=== PATIENT | male | born 1980 | race Caucasian/White ===

== ENCOUNTER 2017-04-12 20:22 | Emergency (ER) | payer SELFPAY ==
[2017-04-12] MEDS ORDERED: Ondansetron 4 MG/2 ML SDV IVPUSH ONE (21:45)
[2017-04-12] MEDS ORDERED: Ketorolac 30 MG/ML SDV IVPUSH ONE (21:45)
[2017-04-12] MEDS ORDERED: Sodium Chloride 0.9% 1,000 ML IV ONE (21:45)
--- NOTE | 2017-04-12 21:51 | EDM.PDOC ---
<Ld Sosa E - Last Filed: 04/12/17 21:46> ED HPI GENERAL MEDICAL PROBLEM - General Chief Complaint: Abdominal Pain Stated Complaint: SICK/SORE THROAT/NAUSEA/VOMITING Time Seen by Provider: 04/12/17 21:46 Source of Information: Reports: Patient History Limitations: Reports: No Limitations - History of Present Illness INITIAL COMMENTS - FREE TEXT/NARRATIVE: HISTORY AND PHYSICAL: History of present illness: Patient is a 36-year-old male who presents to the emergency room today with complaints of nausea, vomiting, diarrhea and generalized low abdominal pain. The symptoms started last night. He states his abdominal pain is due to the retching he has been having while vomiting. He is nontender with palpation to all 4 quadrants. States "soon as it drinks something it comes right back up", reports that he is hungry but is unable to keep anything down. States approximately one week ago he had "sinus symptoms" with a sore throat, nasal congestion and a hoarse voice. As not used any [id number] products for this. Denies any recent travel outside the [place]. Denies any new foods or fast/greasy foods that would have accepted his stomach. Has not been around anyone who has been recently sick either. Had his gallbladder removed approximately 1 month ago, has had no complications since that time. Has not received the 2017- 18 influenza vaccine. Review of systems: As per history of present illness and below otherwise all systems reviewed and negative. Past medical history: As per history of present illness and as reviewed below otherwise noncontributory. Surgical history: As per history of present illness and as reviewed below otherwise noncontributory. Social history: No reported history of drug or alcohol abuse. Family history: As per history of present illness and as reviewed below otherwise noncontributory. Physical exam: Gen.: Well-developed and well-nourished 36-year-old male. Appears in no acute distress and nontoxic appearing. Alert and oriented. HEENT: Atraumatic, normocephalic, pupils reactive, negative for conjunctival pallor or scleral icterus, mucous membranes moist, throat clear, neck supple, nontender, trachea midline. TMs clear bilaterally. Hoarse voice noted, uvula is midline. No soft tissue swelling noted to the posterior oropharynx. Lungs: Clear to auscultation, breath sounds equal bilaterally, chest nontender. Heart: S1S2, regular rate and rhythm Abdomen: Soft, nondistended, nontender. No rebound tenderness. Negative for masses or hepatosplenomegaly. Negative for costovertebral tenderness. Pelvis: Stable nontender. Genitourinary: Deferred. Rectal: Deferred. Extremities: Atraumatic, moves all extremities per self, full range of motion, and negative for cords or calf pain. Neurovascular unremarkable. Neuro: Awake, alert, oriented. Cranial nerves II through XII unremarkable. Cerebellum unremarkable. Motor and sensory unremarkable throughout. Exam nonfocal. Diagnostics: CBC, CMP, amylase, lipase Therapeutics: IV fluid, Zofran, Toradol Impression: Viral gastroenteritis Plan: 1. Please take the prescriptions as prescribed. 2. Advance her diet as tolerated. Encourage oral fluids to prevent dehydration. 3. Follow-up with your primary caregiver in the next 1-2 days. Return to the ED as needed and as discussed. Definitive disposition and diagnosis as appropriate pending reevaluation and review of above. Duration: Day(s): Location: Reports: Generalized abdomen Pain Score (Numeric/FACES): 7 low back Pain Score (Numeric/FACES): 5 - Related Data Allergies Allergy/AdvReac Type Severity Reaction Status Date / Time No Known Allergies Allergy Verified 04/12/17 20:45 Home Meds: Home Meds . [No Known Home Meds] 04/12/17 [History] Past Medical History - Past Health History Medical/Surgical History: Denies Medical/Surgical History - Past Surgical History GI Surgical History: Reports: Cholecystectomy Social & Family History - Family History Family Medical History: Noncontributory - Tobacco Use Smoking Status *Q: Current Every Day Smoker Years of Tobacco use: 10 Packs/Tins Daily: 1 - Recreational Drug Use Recreational Drug Use: No ED ROS GENERAL - Review of Systems Review Of Systems: ROS reveals no pertinent complaints other than HPI. ED EXAM, GI/ABD - Physical Exam Exam: See Below (See dictation) Course - Vital Signs Last Recorded V/S: Last Vital Signs Temp 36.2 C 04/12/17 20:46 Pulse 82 04/12/17 20:46 Resp 18 04/12/17 20:46 BP 127/71 04/12/17 20:46 Pulse Ox 96 04/12/17 20:46 - Orders/Labs/Meds Orders: Active Orders 24 hr Category Date Time Status Dicyclomine [Bentyl] Med 04/12/17 23:36 Once 20 mg PO ONETIME ONE Labs: Laboratory Tests 04/12/17 04/12/17 Range/Units 22:22 22:22 WBC 8.04 (4.0-11.0) K/uL RBC 4.77 (4.50-5.90) M/uL Hgb 15.9 (13.0-17.0) g/dL Hct 45.1 (38.0-50.0) % MCV 94.5 (80.0-98.0) fL MCH 33.3 H (27.0-32.0) pg MCHC 35.3 (31.0-37.0) g/dL RDW Std Deviation 48.2 (28.0-62.0) fl RDW Coeff of Rody 14 (11.0-15.0) % Plt Count 234 (150-400) K/uL MPV 9.80 (7.40-12.00) fL Neut % (Auto) 76.0 (48.0-80.0) % Lymph % (Auto) 12.2 L (16.0-40.0) % [place] % (Auto) 11.3 (0.0-15.0) % Eos % (Auto) 0.4 (0.0-7.0) % Baso % (Auto) 0.1 (0.0-1.5) % Neut # (Auto) 6.1 H (1.4-5.7) K/uL Lymph # (Auto) 1.0 (0.6-2.4) K/uL [place] # (Auto) 0.9 H (0.0-0.8) K/uL Eos # (Auto) 0.0 (0.0-0.7) K/uL Baso # (Auto) 0.0 (0.0-0.1) K/uL Nucleated RBC % 0.0 /100WBC Nucleated RBCs # 0 K/uL Sodium 137 (136-146) mmol/L Potassium 3.6 (3.5-5.1) mmol/L Chloride 105 (98-110) mmol/L Carbon Dioxide 22 (21-31) mmol/L BUN 19 (6.0-23.0) mg/dL Creatinine 1.1 (0.6-1.5) mg/dL Est Cr Clr Drug Dosing 109.89 mL/min Estimated GFR (MDRD) > 60.0 ml/min Glucose 96 (60-110) mg/dL Calcium 9.1 (8.8-10.8) mg/dL Total Bilirubin 0.6 (0.1-1.5) mg/dL AST 32 (5-40) IU/L ALT 62 H (8-54) IU/L Alkaline Phosphatase 226 H (40-150) Total Protein 7.3 (6.0-8.0) g/dL Albumin 4.1 (3.5-5.0) g/dL Globulin 3.2 (2.0-3.5) g/dL Albumin/Globulin Ratio 1.28 Amylase 55 (10-90) U/L Lipase 15 (7-80) U/L Meds: Medications Discontinued Medications Generic Name Dose Route Start Last Admin Trade Name Freq PRN Reason Stop Dose Admin Sodium Chloride 1,000 mls @ 999 mls/hr 04/12/17 21:45 04/12/17 22:32 Normal Saline IV 04/12/17 22:45 999 mls/hr STAT ONE Administration Ketorolac Tromethamine 30 mg 04/12/17 21:45 04/12/17 22:33 Toradol IVPUSH 04/12/17 21:46 30 mg ONETIME ONE Administration Ondansetron HCl 4 mg 04/12/17 21:45 04/12/17 22:33 Zofran IVPUSH 04/12/17 21:46 4 mg ONETIME ONE Administration Departure - Departure Disposition: Home, Self-Care 01 Clinical Impression: Gastroenteritis - Discharge Information Instructions: Viral Gastroenteritis, Adult, [id number] Referrals: PCP,None [Primary Care Provider] - Forms: ED Department Discharge Additional Instructions: My general discharge The following information is given to patients seen in the emergency department who are being discharged to home. This information is to outline your options for follow-up care. We provide all patients seen in our emergency department with a follow-up referral. The need for follow-up, as well as the timing and circumstances, are variable depending upon the specifics of your emergency department visit. If you don't have a primary care physician on staff, we will provide you with a referral. We always advise you to contact your personal physician following an emergency department visit to inform them of the circumstance of the visit and for follow-up with them and/or the need for any referrals to a consulting specialist. The emergency department will also refer you to a specialist when appropriate. This referral assures that you have the opportunity for follow-up care with a specialist. All of these measure are taken in an effort to provide you with optimal care, which includes your follow-up. Under all circumstances we always encourage you to contact your private physician who remains a resource for coordinating your care. When calling for follow-up care, please make the office aware that this follow-up is from your recent emergency room visit. If for any reason you are refused follow-up, please contact the Emergency Department at and asked to speak to the emergency department charge nurse. Primary Care [address] [place] [id number] 1. Please take the prescriptions as prescribed. Zofran and dicyclomine has been given to be a Insty Meds 2. Advance her diet as tolerated. Encourage oral fluids to prevent dehydration. 3. Follow-up with your primary caregiver in the next 1-2 days. Return to the ED as needed and as discussed. - My Orders Last 24 Hours: My Active Orders 04/12/17 23:36 Dicyclomine [Bentyl] 20 mg PO ONETIME ONE - Assessment/Plan Last 24 Hours: My Active Orders 04/12/17 23:36 Dicyclomine [Bentyl] 20 mg PO ONETIME ONE <Sneha Soriano - Last Filed: 04/12/17 23:37> ED HPI GENERAL MEDICAL PROBLEM - History of Present Illness INITIAL COMMENTS - FREE TEXT/NARRATIVE: On my reevaluation of this patient he is currently not having any nausea or vomiting and is taking by mouth's of fluid. I have discussed with him all testing results including the slight bump in the ALT and alkaline phosphatase and asked him to have that followed up by his provider in the clinic. I will give him a dose of Bentyl here as well as Bentyl for home and Zofran for home. Departure - Departure Time of Disposition: 23:37 Condition: Good
[2017-04-12 22:59] LABS: CHLORIDE,CL 105 mmol/L (98-110); SODIUM,NA 137 mmol/L (136-146)
[2017-04-12] MEDS ORDERED: Dicyclomine 10 MG Cap PO ONE (23:36)
== END 2017-04-13 | disposition home or self-care (01) ==
LOC: MW.ED 20:22 → EDSEX 20:22 → MW.ED 04-13
DX: A08.4 Viral intestinal infection, unspecified (principal); F17.210 Nicotine dependence, cigarettes, uncomplicated
CPT/HCPCS: 36415; 80053; 82150; 83690; 85025; 96361; 96374; 96375; 99284; A9270; J1885; J2405; J7040; 99283